=== PATIENT | female | born 1965 | race Caucasian/White ===

== ENCOUNTER 2017-12-08 12:49 | Emergency (ER) | payer OTHER ==
[2017-12-08] MEDS ORDERED: TYLENOL EXTRA STRENGTH 500 MG PO STA (13:29)
[2017-12-08 13:33] VITALS: O2SAT 99
--- NOTE | 2017-12-08 13:34 | ERPHSYRPT ---
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, no bleeding or other injury, pt is right handed Allergies/Adverse Reactions: ketorolac [From Toradol] Allergy (Verified 12/08/17 13:31) tramadol Allergy (Verified 12/08/17 13:31) Home Medications: Butalb/Acetaminophen/Caffeine [Jiljbm-Oohnawdz-Ahmz 50-325-40] 1 each PO DAILY 12/08/17 [History] Hydrocodone/APAP 10/325 mg [[place] 10/325 MG Tablet] 1 tab PO Q6H 12/08/17 [History] Omeprazole 40 mg PO DAILY 12/08/17 [History] Propranolol HCl 10 mg [Inderal 10 MG] 10 mg PO BID 12/08/17 [History] Zolpidem Tartrate [Ambien] 12.5 mg PO HS 12/08/17 [History] Zonisamide [Zonegran] 300 mg PO DAILY 12/08/17 [History] - Review of Systems Musculoskeletal: Joint Pain Skin: No Rash Neurological: No Dizziness - Nursing Vital Signs Nursing Vital Signs: Initial Vital Signs Temperature 97.9 F 12/08/17 12:59 Pulse Rate 65 12/08/17 12:59 Respiratory Rate 16 12/08/17 12:59 Blood Pressure 151/95 12/08/17 12:59 O2 Sat by Pulse Oximetry 99 12/08/17 12:59 Pain Scale Pain Intensity 5 - Physical Exam General Appearance: no apparent distress Extremity Exam: other (hx deformity of little finger, tender mid hand, rom limited by pain, nurse instructed to remove rings, sen and pulses intact, no sts , nontender wrist) Neurologic Exam: alert, oriented x 3, cooperative Skin Exam: normal color, warm, dry - Course Nursing assessment & vital signs reviewed: Yes Ordered Tests: Active Orders 24 hr Category Date Time Status Splint STAT Care 12/08/17 14:02 Ordered HAND (MINIMUM 3 VIEWS) Stat Exams 12/08/17 13:48 Completed Medication Summary Discontinued Medications Generic Name Dose Route Start Last Admin Trade Name Freq PRN Reason Stop Dose Admin Acetaminophen 1,000 mg 12/08/17 13:29 12/08/17 13:46 Tylenol Extra Strength 500 Mg PO 12/08/17 13:30 1,000 mg STAT STA Administration Acetaminophen Confirm 12/08/17 13:42 Tylenol Extra Strength 500 Mg Administered 12/08/17 13:43 Dose 1,000 mg .ROUTE .STTecnoblu-MED ONE - Progress Progress: improved - Departure Time of Disposition: 14:04 Departure Disposition: Home Clinical Impression: Fracture, finger Qualifiers: Encounter type: initial encounter Finger: middle finger Fracture type: closed Phalanx: middle Fracture alignment: nondisplaced Laterality: right Qualified Code(s): S62.652A - Nondisplaced fracture of middle phalanx of right middle finger, initial encounter for closed fracture Condition: Stable Critical Care Time: No Referrals: DOCTOR,NO FAMILY [Primary Care Provider] - Instructions: Finger Fracture (DC) Additional Instructions: see [facility] at [phone], return if worse, tylenol, ice and elevation, wear the splint
[2017-12-08] MEDS ORDERED: TYLENOL EXTRA STRENGTH 500 MG ONE (13:42)
[2017-12-08 13:52] VITALS: BP 147/83; PULSE 66
--- NOTE | 2017-12-08 13:59 | XRAY ---
Indication: 3rd finger pain and swelling following injury. Comparison: None 3 views of the right hand demonstrates nondisplaced avulsion type fracture involving the base of the 3rd middle phalanx anteriorly with soft tissue swelling. No other bony, articular, or soft tissue abnormalities.
== END 2017-12-08 14:53 | disposition home or self-care (01) ==
LOC: ED 12:49
DX: S62.652A Nondisplaced fracture of middle phalanx of right middle finger, initial encounter for closed fracture (principal); X50.1XXA Overexertion from prolonged static or awkward postures, initial encounter; Y93.89 Activity, other specified; Y92.89 Other specified places as the place of occurrence of the external cause
CPT/HCPCS: 73130; 99283; A9270-GY